=== PATIENT | female | born 2000 ===

== ENCOUNTER 2023-11-15 03:24 | Emergency (ER) | payer OTHER ==
[2023-11-15 03:30] VITALS: TEMP 97.7
[2023-11-15] MEDS ORDERED: NS 1,000 ML IV ONE ×2 (03:45→04:45)
[2023-11-15 03:49] LABS: BASO % 0.3 % (0.0-2.0); EOS # 0.1 K/mm3 (0.0-0.7); EOS % 1.4 % (0.0-4.0); GRAN # 3.3 K/mm3 (1.4-6.5); GRAN % 57.2 % (42.2-75.2); HEMOGLOBIN 11.5 g/dl (12.5-16.0); LYMPH # 1.8 K/mm3 (1.2-3.4); LYMPH % 30.6 % (20.0-51.0); MEAN CELL VOLUME 78 fl (80.0-100.0); MEAN CORPUSCULAR HEMOGLOBIN 24 pg (27-31); MEAN CORPUSCULAR HGB CONC 30 g/dl (33.0-37.0); MEAN PLATELET VOLUME 10.1 fl (7.4-10.4); MONO # 0.6 K/mm3 (0.1-0.6); MONO % 10.3 % (1.7-9.3); PLATELET COUNT 347 K/mm3 (130-400); REDCELL DISTRIBUTION WIDTH-CV 15.1 % (11.5-14.5)
[2023-11-15 03:51] LABS: PROTHROMBIN TIME 11.1 SECONDS (9.7-12.8)
[2023-11-15 04:01] LABS: COLLECTION METHOD CATHETER
[2023-11-15 04:02] LABS: ALANINE AMINOTRANSFERASE 23 U/L (0-55); ALBUMIN 3.3 g/dL (3.5-5.0); ALCOHOL(ethanol),MEDICAL 137 mg/dL (0-10); ALKALINE PHOSPHATASE 101 U/L (40-150); ANION GAP 14 mmol/L (7-16); AST,SGOT 36 U/L (5-34); BILIRUBIN,TOTAL 0.1 mg/dL (0.2-1.2); BLOOD UREA NITROGEN 8 mg/dL (7-19); CALCIUM 9.1 mg/dL (8.4-10.2); CHLORIDE 113 mEq/L (98-107); CREATINE KINASE 145 U/L (29-168); CREATININE, serum 0.76 mg/dL (0.57-1.11); GLUCOSE 88 mg/dL (70-99); POTASSIUM 3.7 mEq/L (3.5-4.5); SODIUM 145 mEq/L (136-145); TOTAL PROTEIN 8.1 g/dl (6.2-8.1)
[2023-11-15 04:03] LABS: SALICYLATE < 5.0 mg/dL (15.0-30.0)
[2023-11-15 04:09] LABS: TROPONIN-I < 0.010 ng/mL (0.00-0.033)
[2023-11-15 04:22] LABS: URINE APPEARANCE CLEAR (CLEAR/HAZY); URINE BLOOD NEGATIVE (NEGATIVE); URINE COLOR YELLOW (YELLOW); URINE GLUCOSE NEGATIVE (NEGATIVE); URINE KETONE NEGATIVE (NEGATIVE); URINE NITRATE NEGATIVE (NEGATIVE); URINE PROTEIN(semi-quant) NEGATIVE (NEGATIVE); URINE UROBILINOGEN 0.2 E.U/dL (0.2-1.0)
[2023-11-15 04:31] LABS: TRICYCLIC ANTIDEPRESS URINE NEGATIVE (NEGATIVE)
[2023-11-15 04:35] LABS: BUDDING YEAST PRESENT (NOT PRESENT); URINE WBC 0-2 /hpf (0-2)
[2023-11-15 09:15] VITALS: BP 137/98; PULSE 92
== END 2023-11-15 09:29 ==
LOC: COL.ER 03:24
PROVIDERS: Emergency Medicine
DX: R41.82 Altered mental status, unspecified (principal)
CPT/HCPCS: J7030